=== PATIENT | male | born 1990 | race Caucasian/White ===

== ENCOUNTER 2020-12-25 08:17 | Emergency (ER) | payer SELFPAY ==
[~2020-12-25] VITALS: Ht 177.8 cm; Wt 81.8 kg
--- NOTE | 2020-12-25 08:28 | NUR ---
BREAK RN NOTE: Pt BIB EMS for complaints of soap in his mouth after smoking meth from somones pipe. The pt states that he also expierenced heart palp and hand numbness. EKG done on arrival, NSR on the monior, connected to all monitors, VSS. Pt stating that he needs his stomach pumped to get all the soap out. Pt made aware that if he did no ingest soap that it would be unlikely for his stomach to be pumped. NADN. [facility]
[2020-12-25 08:34] VITALS: BP 131/84
--- NOTE | 2020-12-25 08:46 | NUR ---
Patient given discharge instructions and they have confirmed that they understand the instructions. Patient ambulatory with steady gait.
== END 2020-12-25 08:48 | disposition home or self-care (01) ==
LOC: ED 08:35
DX: F13.1 Sedative, hypnotic or anxiolytic-related abuse (principal); F17.200 Nicotine dependence, unspecified, uncomplicated; R00.0 Tachycardia, unspecified
CPT/HCPCS: 93005; 99283